=== PATIENT | female | born 1975 | race Caucasian/White ===

== ENCOUNTER 2022-02-22 23:25 | Inpatient (IN) ==
[2022-02-23] MEDS ORDERED: ONDANSETRON 4 MG/2 ML VIAL IV STA (00:18)
[2022-02-23] MEDS ORDERED: HYDROmorphone 1 MG/1 ML SYRINGE IV STA (00:19)
[2022-02-23] MEDS ORDERED: SODIUM CHLORIDE 0.9% 1,000 ML IV STA (00:20)
[2022-02-23] MEDS ORDERED: MORPHINE 2 MG/1 ML SYRINGE IV STA (00:27)
[2022-02-23] MEDS ORDERED: MORPHINE 2 MG/1 ML SYRINGE IV PRN (00:41)
[2022-02-23] MEDS ORDERED: BISACODYL 10 MG SUPP RECTAL PRN (00:41)
[2022-02-23] MEDS ORDERED: IBUPROFEN 800 MG TABLET PO PRN (00:41)
[2022-02-23] MEDS ORDERED: MAGNESIUM HYDROXIDE SUSP 30 ML UDCUP PO PRN (00:41)
[2022-02-23] MEDS ORDERED: ACETAMINOPHEN 325 MG TABLET PO PRN (00:41)
[2022-02-23] MEDS ORDERED: GLUCAGON 1 MG VIAL IM PRN (00:41)
[2022-02-23] MEDS ORDERED: ONDANSETRON 4 MG/2 ML VIAL IV PRN ×2 (00:41→09:00)
[2022-02-23] MEDS ORDERED: DEXTROSE 10% 250 ML BAG IV PRN (00:44)
[2022-02-23 00:46] LABS: Basophils % 0.2 % (0.0-0.8); Eosinophils # 0.2 10*3/uL (0.0-0.87); Hemoglobin 12.1 GM/DL (12.0-16.0); Immature Granulocytes % 0.2 %; Immature Granulocytes Absolute 0.02 #; Lymphocytes # 2.1 10*3/uL (1.4-4.0); Mean Corpuscular HGB Conc 31.8 GM/DL (32-36); Mean Platelet Volume 8.9 FL (9.6-12.0); Monocytes # 0.5 10*3/uL (0.11-0.8); Monocytes % 5.3 % (1.7-12.7); Neutrophils % 68.3 % (38.7-73.9); Platelet Count 364 T/CUMM (130-400); Red Blood Count 4.27 MC/CUMM (3.8-5.5); White Blood Count 8.7 T/CUMM (4-12)
[2022-02-23 01:03] LABS: Alanine Aminotransferase 31 U/L (13-56); Albumin 3.5 G/DL (3.4-5.0); Alkaline Phosphatase 78 U/L (45-117); Aspartate Amino Transferase 16 U/L (0-37); Bilirubin,Total < 0.39 MG/DL (0.20-1.00); Blood Urea Nitrogen 8 MG/DL (7-18); Calcium 8.9 MG/DL (8.5-10.1); Carbon Dioxide 24 MMOL/L (21-32); Chloride 106 MMOL/L (98-107); Glucose 125 MG/DL (74-106); Osmolality,Calculated 273.7 MOS/KG (273-304); Potassium 3.7 MMOL/L (3.5-5.1); Sodium 138 MMOL/L (136-145)
[2022-02-23 01:11] LABS: INR 0.9; PT Patient Result 10.2 SECS (10.1-12.1); Partial Thromboplastin Time 32.9 SECS (23.7-32.9)
[2022-02-23] MEDS: SODIUM CHLORIDE 0.9% 1,000 ML IV SCH ×3 (02:28→12:16)
[2022-02-23] MEDS ORDERED: INSULIN REGULAR 100 UNIT/ML SUBCUT SCH (06:00)
[2022-02-23] MEDS ORDERED: LEVOTHYROXINE 88 MCG TABLET PO SCH (06:00)
[2022-02-23 06:11] LABS: Basophils % 0.1 % (0.0-0.8); Eosinophils # 0.2 10*3/uL (0.0-0.87); Eosinophils % 2.5 % (0.00-10.9); Hematocrit 36.6 VOL% (35.7-47.0); Hemoglobin 11.7 GM/DL (12.0-16.0); Immature Granulocytes % 0.6 %; Immature Granulocytes Absolute 0.05 #; Lymphocytes # 1.6 10*3/uL (1.4-4.0); Lymphocytes % 19.7 % (21.3-54.2); Mean Corpuscular Volume 89.5 FL (87-102); Mean Platelet Volume 8.9 FL (9.6-12.0); Monocytes # 0.6 10*3/uL (0.11-0.8); Monocytes % 6.7 % (1.7-12.7); Neutrophils % 70.4 % (38.7-73.9); Platelet Count 326 T/CUMM (130-400); Red Blood Count 4.09 MC/CUMM (3.8-5.5); Red Cell Distribution Width 13.9 % (9.3-17.3); White Blood Count 8.2 T/CUMM (4-12)
[2022-02-23] MEDS ORDERED: MIDAZOLAM 2 MG/2 ML VIAL ONE (06:34)
[2022-02-23] MEDS ORDERED: LIDOCAINE 2% 5 ML VIAL ONE (06:34)
[2022-02-23] MEDS ORDERED: ROCURONIUM 50 MG/5 ML VIAL IV ONE (06:34)
[2022-02-23] MEDS ORDERED: ONDANSETRON 4 MG/2 ML VIAL ONE (06:34)
[2022-02-23] MEDS ORDERED: propofoL 200 MG/20 ML VIAL IV ONE (06:34)
[2022-02-23] MEDS ORDERED: fentaNYL 100 MCG/2 ML VIAL ONE (06:34)
[2022-02-23] MEDS ORDERED: DEXAMETHASONE 4 MG/1 ML VIAL ONE (06:34)
[2022-02-23] MEDS: METOPROLOL SUCCINATE XL 25 MG TABLET PO SCH ×2 (07:05→08:30)
[2022-02-23] MEDS ORDERED: LIDOCAINE 1%/EPI INJ 20 ML VIAL ONE (07:08)
[2022-02-23] MEDS ORDERED: TISSUE ADHESIVE 1 EACH APPLICATOR TOP ONE (07:08)
[2022-02-23] MEDS ORDERED: BUPIVACAINE MPF 0.25% 10 ML VIAL ONE (07:08)
[2022-02-23] MEDS ORDERED: NEOSTIGMINE 10 MG/10 ML VIAL ONE (08:21)
[2022-02-23] MEDS ORDERED: GLYCOPYRROLATE 0.4 MG/2 ML VIAL ONE (08:21)
[2022-02-23] MEDS ORDERED: MEPERIDINE 25 MG/1 ML VIAL ONE (08:54)
[2022-02-23] MEDS: MEPERIDINE 25 MG/1 ML VIAL IV PRN ×2 (08:55→09:18)
[2022-02-23] MEDS ORDERED: POTASSIUM CHLORIDE 10 MEQ TABLET PO SCH (09:00)
[2022-02-23] MEDS ORDERED: AMITRIPTYLINE 25 MG TABLET PO SCH (09:00)
[2022-02-23] MEDS ORDERED: ROSUVASTATIN 10 MG TABLET PO SCH (09:00)
[2022-02-23] MEDS ORDERED: DOCUSATE SODIUM 100 MG CAPSULE PO SCH (09:00)
[2022-02-23] MEDS ORDERED: PANTOPRAZOLE 40 MG TABLET PO SCH (09:00)
[2022-02-23] MEDS ORDERED: GABAPENTIN 100 MG CAPSULE PO SCH (09:00)
[2022-02-23] MEDS ORDERED: VENLAFAXINE XR 75 MG CAPSULE PO SCH (09:00)
[2022-02-23] MEDS ORDERED: lisinopriL 2.5 MG TABLET PO SCH (09:00)
[2022-02-23 17:37] VITALS: BP 112/58
== END 2022-02-23 14:25 | disposition still patient (30) | DRG 743 ==
LOC: EDBD → EDUNIT# → N.ED 23:25 → N.OB 02-23 00:29
PROVIDERS: ADMIT Obstetrics & Gynecology; ATTEND Obstetrics & Gynecology